=== PATIENT | male | born 2000 | race Caucasian/White ===

== ENCOUNTER 2023-02-09 11:30 | Emergency (ER) | payer BC ==
[2023-02-09] MEDS ORDERED: Bupivacaine 0.5% 10 ML VIAL FS SCH (13:15)
== END 2023-02-09 14:20 | disposition home or self-care (01) ==
LOC: CSHERS 11:30
DX: S62.636A Displaced fracture of distal phalanx of right little finger, initial encounter for closed fracture (principal); W23.0XXA Caught, crushed, jammed, or pinched between moving objects, initial encounter; Y93.67 Activity, basketball
CPT/HCPCS: 29130; J3490